=== PATIENT | female | born 1945 | race Caucasian/White ===

== ENCOUNTER 2018-12-18 17:58 | Emergency (ER) | payer OTHER ==
[~2018-12-18] VITALS: Ht 165.1 cm; Wt 61.3 kg
[2018-12-18] MEDS ORDERED: PANT40TA3 PO (18:23)
[2018-12-18] MEDS ORDERED: ALBUTEROL IH (18:23)
[2018-12-18] MEDS ORDERED: BREO1INH PO (18:23)
[2018-12-18] MEDS ORDERED: VALS1TAB49 PO (18:23)
[2018-12-18] MEDS ORDERED: IPRA0.00 NEB (18:23)
[2018-12-18] MEDS ORDERED: LEVA1TAB2 PO (18:23)
[2018-12-18] MEDS ORDERED: AMLO5TAB6 PO (18:23)
[2018-12-18] MEDS ORDERED: SIMV20TA2 PO (18:23)
[2018-12-18] MEDS ORDERED: MEMA1TAB PO (18:23)
[2018-12-18] MEDS ORDERED: PRED10PA2 PO (18:23)
[2018-12-18] MEDS ORDERED: BREO1INH INH (20:07)
[2018-12-18] MEDS ORDERED: BUDE0.5S6 INH (20:07)
[2018-12-18 21:55] VITALS: BP 117/63
== END 2018-12-18 22:08 | disposition home or self-care (01) ==
LOC: M ED 17:58
DX: F32.9 Major depressive disorder, single episode, unspecified (principal); F03.90 Unspecified dementia, unspecified severity, without behavioral disturbance, psychotic disturbance, mood disturbance, and anxiety; I10 Essential (primary) hypertension; E78.5 Hyperlipidemia, unspecified; J44.9 Chronic obstructive pulmonary disease, unspecified; Z79.899 Other long term (current) drug therapy; Z88.0 Allergy status to penicillin; Z88.2 Allergy status to sulfonamides; Z88.1 Allergy status to other antibiotic agents